=== PATIENT | female | born 2000 | race African-American/Black ===

== ENCOUNTER 2022-09-29 07:29 | Emergency (ER) | payer MEDICAID ==
[~2022-09-29] VITALS: Ht 165.1 cm; Wt 78.0 kg
[2022-09-29 07:43] VITALS: BP 160/90
[2022-09-29] MEDS ORDERED: ONDANSETRON HCL 4MG/2ML INJ IV SCH (08:30)
[2022-09-29] MEDS ORDERED: SODIUM CHLORIDE 0.9% 1,000 ML IV ONE (10:45)
== END 2022-09-29 11:08 | disposition home or self-care (01) ==
LOC: ER 07:29
DX: F10.90 Alcohol use, unspecified, uncomplicated (principal); Y90.9 Presence of alcohol in blood, level not specified
CPT/HCPCS: 99281; J7030